=== PATIENT | female | born 1970 | race Caucasian/White ===

== ENCOUNTER 2016-12-03 14:10 | Emergency (ER) | payer BC ==
[~2016-12-03] VITALS: Ht 157.5 cm; Wt 64.0 kg
[2016-12-03 14:13] VITALS: TEMP 36.9; Ht 157.5 cm; Wt 64.0 kg
[2016-12-03] MEDS ORDERED: FENTANYL CITRATE INJ 50 MCG/1 ML 2 ML VIAL IV ONE ×2 (14:30→15:30)
[2016-12-03 14:35] VITALS: O2SAT 100
--- NOTE | 2016-12-03 15:14 | DIAGNOSTIC IMAGING REPORT ---
RIGHT WRIST MIN 3 VIEWS ROUTINE CLINICAL HISTORY: Right wrist pain status post trauma COMPARISON: None. DISCUSSION: There is an acute intra-articular impaction fracture of the distal radius. Fractures essentially nondisplaced. No ulnar fractures are visualized. IMPRESSION: Acute intra-articular impaction fracture of the distal radius Electronically signed by: Aly Nolasco M.D. 12/03/2016 3:13 PM Dictated Date/Time: 12/03/2016 3:12 PM
[2016-12-03] MEDS ORDERED: KETOROLAC TROMETHAMINE 30 MG/ML VIAL IV STA (16:03)
[2016-12-03] MEDS ORDERED: HYDROmorphone INJ 1 MG/ML SYR IV STA (16:03)
[2016-12-03] MEDS ORDERED: HYDROmorphone INJ 0.5 MG/0.5 ML SYR ONE (16:09)
[2016-12-03] MEDS ORDERED: OXYC1TAB3 PO (16:09)
[2016-12-03 16:49] VITALS: BP 107/73; PULSE 77; O2SAT 99
--- NOTE | 2016-12-03 19:35 | EMERGENCY ROOM VISIT NOTE ---
History First contact with patient: 14:17 Chief Complaint: WRIST PAIN Stated Complaint: R WRIST INJURY History of Present Illness The patient is a 46 year old female who presents to the Emergency Room with complaints of right wrist injury after falling while roller skating just prior to arrival. The patient lives in [place] and is visiting locally. She is heading back home in 3 days with her . The patient does not have a previous injury to this wrist. She has not had any medication [id number] and rates her discomfort an 8/10. She does not have numbness or paresthesias. Her discomfort worsens when trying to use and move her wrist. No other injury noted with her fall. She is not on blood thinners and considers herself otherwise usually healthy. Review of Systems More than 10 systems were reviewed and otherwise negative with the exception of history of present illness. Past Medical/Surgical History No chronic medical disease Family History No pertinent family history Social History Smoking Status: Never Smoker Housing Status: lives with family Current/Historical Medications Scheduled Oxycodone Immediate Rel Tab (Roxicodone Ir), 1-2 TAB PO Q6 Allergies Coded Allergies: Sulfamethoxazole w/Trimethoprim (Unverified Adverse Reaction, Unknown, UPSET STOMACH, 12/03/16) Physical Exam Vital Signs Date Time Temp Pulse Resp B/P Pulse Ox O2 Delivery O2 Flow Rate FiO2 12/03/16 16:49 77 14 107/73 99 Room Air 12/03/16 16:09 62 18 108/73 99 Room Air 12/03/16 14:56 67 12/03/16 14:35 100 Room Air 12/03/16 14:13 36.9 82 18 126/83 100 Room Air Pain Rating (0-10): 0 Physical Exam VITALS: Vitals are noted on the nurse's note and reviewed by myself. Vital signs stable. GENERAL: Well-developed, well-nourished, white female who is in moderate to severe discomfort secondary to her stated complaint. Patient is cooperative with the examination. HEAD: Normocephalic atraumatic. NECK: Supple without nuchal rigidity. No lymphadenopathy. No thyromegaly. Cervical spine is nontender. HEART: Regular rate and rhythm without murmurs gallops or rubs. LUNGS: Clear to auscultation bilaterally without wheezes, rales or rhonchi. No retractions or accessory muscle use. MUSCULOSKELETAL: Ecchymosis and edema appreciated over the distal right radius. Cryptologic Technician Technical strength is 4/5. Neurovascular status is intact. No gross deformity is noted. No laceration or bleeding. No tenderness of the elbow or shoulder. NEURO: Patient was alert and oriented to person place and time. CN II through XII grossly intact. Deep tendon reflexes 2+ throughout. No focal neurological deficits SKIN: The skin was without rashes, erythema, edema, or bruising. Capillary reflex less than 2 seconds. Medical Decision & Procedures ER Provider Diagnostic Interpretation: RIGHT WRIST MIN 3 VIEWS ROUTINE CLINICAL HISTORY: Right wrist pain status post trauma COMPARISON: None. DISCUSSION: There is an acute intra-articular impaction fracture of the distal radius. Fractures essentially nondisplaced. No ulnar fractures are visualized. IMPRESSION: Acute intra-articular impaction fracture of the distal radius Medications Administered Medications (Trade) Dose Ordered Sig/Ashtyn Route Start Time Stop Time Status Last Admin Dose Admin Fentanyl Citrate (Fentanyl Inj) 50 mcg NOW ONCE IV 12/03/16 14:30 12/03/16 14:31 DC 12/03/16 14:39 50 MCG Fentanyl Citrate (Fentanyl Inj) 50 mcg NOW ONCE IV 12/03/16 15:30 12/03/16 15:31 DC 12/03/16 15:25 50 MCG Ketorolac Tromethamine (Toradol Inj) 30 mg NOW STAT IV 12/03/16 16:03 12/03/16 16:06 DC 12/03/16 16:13 30 MG Hydromorphone HCl (Dilaudid Inj) 0.5 mg NOW STAT IV 12/03/16 16:03 12/03/16 16:06 DC 12/03/16 16:03 0.5 MG ED Course Physical exam and history were performed. Nursing notes and EMR were reviewed. Patient appears to have fallen and suffered injury to her right wrist as described above. The patient does have tenderness over the distal radius but no gross deformity. No neurovascular compromise. I had significant concern for fracture and did elect to establish an IV and give the patient fentanyl 50 g here in the department. X-ray was performed, and does confirm a nondisplaced impaction fracture. I discussed the case with the on-call orthopedist, Dr. Holcomb, who recommended splinting, sling, and pain medication. The patient is from the [facility] and will be returning home in about 3 days. She will be given copies of her x- ray films and asked to contact orthopedics back home for ongoing care and management. The patient was pleased with this and understands the importance of returning back to the ER with any new, worsening, or concerning symptoms. I will give her a short course of oxycodone. The patient was given additional pain medication before application of her splint, and she was ultimately discharged home under the care of her who is acting as the sales route driver helper. The chart was completed utilizing [email or web address] Speech Voice Recognition Software. Grammatical errors, random word insertions, pronoun errors, and incomplete sentences are an occasional consequence of this system due to software limitations, ambient noise, and hardware issues. Any formal questions or concerns about the content, text, or information contained within the body of this dictation should be directly addressed to the provider for clarification. . Medical Decision Differential diagnosis includes, but is not limited to: Sprain, strain, fracture , dislocation, subluxation, contusion, and others Impression Primary Impression: Distal radius fracture, right Departure Information Dispostion Home / Self-Care Prescriptions Oxycodone Immediate Rel Tab (ROXICODONE IR) 5 Mg Tab 1-2 TAB PO Q6 for Pain, #24 TAB Prov: Finesse Sinha PA-C 12/03/16 Forms HOME CARE DOCUMENTATION FORM, IMPORTANT VISIT INFORMATION Patient Instructions My [facility], ED Fx Wrist General, ED Compartment Syndrome At Risk For, ED RICE Additional Instructions You were seen and evaluated today on an emergency basis only. This is not a substitute for, or an effort to provide, complete comprehensive medical care. It is not possible to recognize and treat all injuries or illnesses in a single emergency department visit. For this reason it is recommended that you followup with Orthopedics back home for ongoing care and evaluation. Try to arrange a visit this week if possible. Take your disc with you for this appointment. For baseline pain relief you may alternate ibuprofen and acetaminophen every 4 hours for pain control. Take 600 mg ibuprofen (Advil) and then 4 hours later take 1000 mg acetaminophen (Tylenol). Do not take more than 3000 mg acetaminophen in a single day. Oxycodone (OxyIR) 5mg: Take ONE or TWO pills every SIX hours for breakthrough pain. Avoid alcohol, operating machinery or dangerous equipment, working on ladders or roofs, DRIVING, or situations where being under the influence may be dangerous. It is recommended to use an [id number] stool softener such as Colace, 100mg twice daily while taking this medication to avoid constipation. Do not get your splint wet. Wear your arm sling for comfort. You are welcome to return to the emergency department anytime with new, worsening, or concerning symptoms.
== END 2016-12-03 16:59 | disposition home or self-care (01) ==
LOC: C.EDB 14:14 → C.EDA 16:59
DX: S52.501A Unspecified fracture of the lower end of right radius, initial encounter for closed fracture (principal); V00.121A Fall from non-in-line roller-skates, initial encounter; Y92.331 Roller skating rink as the place of occurrence of the external cause; Y93.51 Activity, roller skating (inline) and skateboarding